=== PATIENT | male | born 1965 | race Two or more races ===

== ENCOUNTER 2021-07-16 11:30 | Inpatient (IN) | payer OTHER ==
[~2021-07-16] VITALS: Ht 170.2 cm; Wt 61.2 kg
== END 2021-07-21 11:40 | disposition home or self-care (01) | DRG 329 ==
LOC: O/R 07-18 05:28 → SURH 07-18 05:28
PROVIDERS: ADMIT Colon & Rectal Surgery; ATTEND Colon & Rectal Surgery
PROC: 0DBP4ZZ Excision of Rectum, Percutaneous Endoscopic Approach (ICD-10-PCS; 2021-07-18)
PROC: 0DJD8ZZ Inspection of Lower Intestinal Tract, Via Natural or Artificial Opening Endoscopic (ICD-10-PCS; 2021-07-18)
PROC: 4A1BXSH Monitoring of Gastrointestinal Vascular Perfusion using Indocyanine Green Dye, External Approach (ICD-10-PCS; 2021-07-18)
PROC: 0DTN4ZZ Resection of Sigmoid Colon, Percutaneous Endoscopic Approach (ICD-10-PCS; principal; 2021-07-18 07:00)
DX: K57.20 Diverticulitis of large intestine with perforation and abscess without bleeding (principal); K65.1 Peritoneal abscess; D12.6 Benign neoplasm of colon, unspecified; R10.32 Left lower quadrant pain; Z20.822 Contact with and (suspected) exposure to COVID-19; E83.39 Other disorders of phosphorus metabolism

== ENCOUNTER 2021-08-19 10:05 | Emergency (ER) | payer OTHER ==
[~2021-08-19] VITALS: Ht 170.2 cm; Wt 62.6 kg
== END 2021-08-19 17:07 | disposition home or self-care (01) ==
LOC: ER 10:05
DX: R10.9 Unspecified abdominal pain (principal)

== ENCOUNTER 2021-12-17 05:50 | Day surgery (SDC) | payer OTHER | END 2021-12-17 10:50 | disposition home or self-care (01) | LOC: AMB-ENDOS 05:50 | PROVIDERS: ATTEND Colon & Rectal Surgery | DX: D12.4 Benign neoplasm of descending colon (principal); D12.3 Benign neoplasm of transverse colon; Z20.822 Contact with and (suspected) exposure to COVID-19 ==

== ENCOUNTER → 2023-03-10 | Day surgery (SDC) | payer OTHER | END | disposition home or self-care (01) | LOC: ADM 03-05 14:45 → AMB-ENDOS 06:58 | PROVIDERS: ATTEND Colon & Rectal Surgery | DX: D12.2 Benign neoplasm of ascending colon (principal); D12.3 Benign neoplasm of transverse colon; R19.4 Change in bowel habit; Z88.1 Allergy status to other antibiotic agents; Z20.822 Contact with and (suspected) exposure to COVID-19; K64.8 Other hemorrhoids ==